=== PATIENT | male | born 1935 | race Caucasian/White ===

== ENCOUNTER → 2018-05-16 | Outpatient (CLI) | payer MEDICARE, OTHER ==
[~2018-05-16] MED LIST: AMLO5 PO; ASPI325 PO; Azor 10-20 MG1 EACH PO; LANS15EC PO; LISI20; LISI20 PO; METO50; METO50 PO; Multiple Vitam1 EAC1 PO; PROM25 PO; SIMV40 PO; Tasprin325 MG PO
== END | disposition home or self-care (01) ==
LOC: LAB SHORT 07:08 → PLD 07:08
DX: R59.0 Localized enlarged lymph nodes (principal)
CPT/HCPCS: 88173

== ENCOUNTER 2021-02-04 11:48 | Emergency (ER) | payer MEDICARE, OTHER ==
[~2021-02-04] VITALS: Ht 182.9 cm; Wt 103.4 kg
[2021-02-04 12:12] LABS: BASOPHILS ABSOLUTE AUTO 0.03 K/mm3 (0.00-0.23); BASOPHILS PERCENT AUTO 0 % (0-2); EOSINOPHILS ABSOLUTE AUTO 0.08 K/mm3 (0.00-0.68); EOSINOPHILS PERCENT AUTO 1 % (0-6); Hematocrit 45.6 % (37.0-53.0); Hemoglobin 15.5 g/dL (13.5-17.5); IMMATURE GRAN ABSOLUTE AUTO 0.03 K/mm3 (0.00-0.10); IMMATURE GRAN PERCENT AUTO 0 % (0-1); LYMPHOCYTES ABSOLUTE AUTO 4.53 K/mm3 (0.84-5.20); LYMPHOCYTES PERCENT AUTO 38 % (21-46); MONOCYTES ABSOLUTE AUTO 0.43 K/mm3 (0.16-1.47); MONOCYTES PERCENT AUTO 4 % (4-13); Mean Corpuscular HGB 29.9 pg (26.0-34.0); Mean Corpuscular Volume 88 fL (80-100); Mean Platelet Volume 10.4 fL (9.1-12.4); NEUTROPHILS PERCENT AUTO 57 % (41-73); NRBC ABSOLUTE 0.02 K/mm3 (0.00-0.02); NRBC Auto 0.2 /100 WBC (0.0-0.2); Platelet Count 150 K/mm3 (150-400); RDW Coefficient Variation 13.8 % (11.7-14.2); RDW Standard Deviation 44.6 fL (35.1-46.3); Red Blood Cell Count 5.18 M/mm3 (4.30-5.90)
[2021-02-04 12:32] LABS: Alanine Aminotransfer (ALT/SGP 20 U/L (12-78); Albumin, Blood 2.9 g/dL (3.4-5.0); Albumin/Globulin Ratio 0.9 (0.8-1.8); Alk Phos 115 U/L (50-136); Anion Gap 8 mmol/L (6-16); Aspartate Aminotrans (AST/SGOT 26 U/L (12-37); Bilirubin, Total 0.6 mg/dL (0.1-1.0); Blood Urea Nitrogen 16 mg/dL (8-24); Bun/Creatinine Ratio 15.7 (12.0-20.0); CO2, Blood 24 mmol/L (21-32); Calcium, Blood 8.4 mg/dL (8.5-10.1); Chloride, Blood 107 mmol/L (98-108); Creatinine, Blood 1.02 mg/dL (0.60-1.20); Globulin, Blood 3.2 g/dL (2.2-4.0); Glomerular Filtration Rate >60 (60-); Glucose, Blood 150 mg/dL (70-99); Potassium, Blood 4.6 mmol/L (3.5-5.5); Sodium, Blood 139 mmol/L (136-145); Total Protein, Blood 6.1 g/dL (6.4-8.2)
== END 2021-02-04 15:02 | disposition home or self-care (01) ==
LOC: ER 11:48
PROVIDERS: Emergency Medicine
DX: R55 Syncope and collapse (principal); E86.0 Dehydration; R42 Dizziness and giddiness; Z88.2 Allergy status to sulfonamides; Z79.899 Other long term (current) drug therapy; Z79.82 Long term (current) use of aspirin; I10 Essential (primary) hypertension; K21.9 Gastro-esophageal reflux disease without esophagitis
CPT/HCPCS: 80053; 83880; 84484; 85025; 93005; 93010; 99284-25

== ENCOUNTER 2021-12-27 10:49 | Day surgery (SDC) | payer MEDICARE, OTHER ==
[~2021-12-27] VITALS: Ht 185.4 cm; Wt 92.2 kg
[2021-12-27] MEDS ORDERED: TAMS.4ER (12:02)
== END 2021-12-27 13:33 | disposition home or self-care (01) ==
LOC: ORSCSDS 10:49
PROVIDERS: Internal Medicine Gastroenterology
PROC: 0DBM8ZX Excision of Descending Colon, Via Natural or Artificial Opening Endoscopic, Diagnostic (ICD-10-PCS; principal; 2021-12-27 12:15)
DX: Z12.11 Encounter for screening for malignant neoplasm of colon (principal); Z86.010 Personal history of colon polyps; D12.4 Benign neoplasm of descending colon; R12 Heartburn; K57.30 Diverticulosis of large intestine without perforation or abscess without bleeding; Z79.82 Long term (current) use of aspirin; Z79.899 Other long term (current) drug therapy
CPT/HCPCS: 88305; J2704; J7120

== ENCOUNTER 2022-08-12 12:00 | Inpatient (IN) | payer MEDICARE, OTHER ==
[~2022-08-12] VITALS: Ht 182.9 cm; Wt 101.2 kg
[~2022-08-12 12:00] MED LIST changes: -LEVAQUIN750 MG PO
--- NOTE | 2022-08-12 17:54 | NUR ---
Spiritual Care Request Pt. is awake in bed and welcomes my visit. Pt. is pleasant but isn't particularly interested in spiritual care. Listened with understanding and empathy. Yet the Pt. invited this payroll benefits administrator to sit and chat. Facilitated a life review with the Pt. and established rapport. Pt. displayed evidence of being cared for, and verbalized appreciatetion for my visit.
--- NOTE | 2022-08-12 18:32 | NUR ---
SHIFT SUMMARY PT A&OX4/[place](AIDS IN), VSS/RA, DEXTER PO CLD, VOIDING, AMB SBA, DENIES PAIN, 2OG RAC, IVF @ 100 MLS/HR AND ABX PER EMAR. WILL REPORT TO ONCOMING NOC YUNIEL.
[2022-08-12 19:35] VITALS: BP 117/49
[2022-08-12 21:30] VITALS: BP 120/55
[2022-08-13 03:15] VITALS: BP 110/52
[2022-08-13 04:22] LABS: BASOPHILS ABSOLUTE AUTO 0.04 K/mm3 (0.00-0.23); BASOPHILS PERCENT AUTO 0 % (0-2); EOSINOPHILS ABSOLUTE AUTO 0.19 K/mm3 (0.00-0.68); EOSINOPHILS PERCENT AUTO 1 % (0-6); Hematocrit 33.1 % (37.0-53.0); Hemoglobin 11.5 g/dL (13.5-17.5); Mean Corpuscular HGB 31.3 pg (26.0-34.0); Mean Corpuscular HGB Conc 34.7 g/dL (31.5-36.5); Mean Corpuscular Volume 90 fL (80-100); Mean Platelet Volume 9.4 fL (9.1-12.4); Platelet Count 195 K/mm3 (150-400); RDW Coefficient Variation 11.9 % (11.7-14.2); RDW Standard Deviation 39.3 fL (35.1-46.3); Red Blood Cell Count 3.67 M/mm3 (4.30-5.90); White Blood Cell Count 13.96 K/mm3 (4.00-11.30)
[2022-08-13 04:24] LABS: IMMATURE GRAN ABSOLUTE AUTO 0.03 K/mm3 (0.00-0.10); IMMATURE GRAN PERCENT AUTO 0 % (0-1); LYMPHOCYTES ABSOLUTE AUTO 7.75 K/mm3 (0.84-5.20); LYMPHOCYTES PERCENT AUTO 56 % (21-46); MONOCYTES ABSOLUTE AUTO 0.87 K/mm3 (0.16-1.47); MONOCYTES PERCENT AUTO 6 % (4-13); NEUTROPHILS ABSOLUTE AUTO 5.08 K/mm3 (1.96-9.15); NEUTROPHILS PERCENT AUTO 36 % (41-73)
[2022-08-13 04:45] LABS: Albumin, Blood 2.3 g/dL (3.4-5.0); Albumin/Globulin Ratio 0.8 (0.8-1.8); Bilirubin, Total 0.9 mg/dL (0.1-1.0); Calcium, Blood 7.9 mg/dL (8.5-10.1); Creatinine, Blood 1.2 mg/dL (0.60-1.20); Globulin, Blood 2.9 g/dL (2.2-4.0); Total Protein, Blood 5.2 g/dL (6.4-8.2)
--- NOTE | 2022-08-13 06:49 | NUR ---
SHIFT SUMMARY AOX4. VERY [place]. VSS. TOLERATING CLEAR LIQUIDS, DENIES N/V. ABD MILD DISTENDED. ABD TENDER TO PALPATION BELOW UMBILICAL, NO PAIN @REST. REPORTS LACK OF APPETITE. IND c URINAL. CALL LIGHT IN REACH WILL MONITOR.
[2022-08-13 07:41] VITALS: BP 122/51
[2022-08-13 15:21] VITALS: BP 113/51
--- NOTE | 2022-08-13 16:21 | NUR ---
SHIFT SUMMARY PT IND IN ROOM, AMBULATING WELL. REPORTS MULTIPLE BM'S TODAY WITH THE MOST RECENT BEING LIQUID. PASSING FLATUS. DENIES PAIN DURING SHIFT. TOLERATING FULL LIQUID DIET WELL.
[2022-08-13 19:31] VITALS: BP 125/60
[2022-08-14 04:11] VITALS: BP 138/61
--- NOTE | 2022-08-14 05:07 | NUR ---
SHIFT SUMMARY AOX4. VSS. DENIES N/V. TOLERATING FULL LIQUID DIET. ACTIVE BT. ABD MILD TENDER BELOW UMBILICAL, REPORTS 2/10 FOR DISCOMFORT. REPORTS NO PAIN OR DISCOMFORT @REST. PT STATES FEELS PAIN HAS "GOTTEN BETTER" SINCE PREVIOUS NIGHT. PASSING FLATUS. IND TO RESTROOM. CALL LIGHT IN REACH & PT ABLE TO MAKE NEEDS KNOWN.
[2022-08-14 07:51] VITALS: BP 137/71
[2022-08-14 14:36] VITALS: BP 134/56
--- NOTE | 2022-08-14 16:41 | NUR ---
shift summary pt remains ind in room, denies pain unless he palpates firmly on his abdomen. continues to pass gas. has had multiple bowel movements, some liquid and some soft. tolerating diet well. iv abx per emar. plan is for patient to have a repeat ct tomorrow.
[2022-08-14 19:55] VITALS: BP 145/61
[2022-08-15 03:15] VITALS: BP 153/69
[2022-08-15 03:55] LABS: BASOPHILS ABSOLUTE AUTO 0.04 K/mm3 (0.00-0.23); BASOPHILS PERCENT AUTO 0 % (0-2); EOSINOPHILS ABSOLUTE AUTO 0.17 K/mm3 (0.00-0.68); EOSINOPHILS PERCENT AUTO 2 % (0-6); Hemoglobin 11.6 g/dL (13.5-17.5); Mean Corpuscular HGB 30.9 pg (26.0-34.0); Mean Corpuscular HGB Conc 34.1 g/dL (31.5-36.5); Mean Corpuscular Volume 91 fL (80-100); Platelet Count 185 K/mm3 (150-400); RDW Coefficient Variation 11.9 % (11.7-14.2); RDW Standard Deviation 39.7 fL (35.1-46.3); Red Blood Cell Count 3.75 M/mm3 (4.30-5.90); White Blood Cell Count 10.87 K/mm3 (4.00-11.30)
[2022-08-15 04:04] LABS: IMMATURE GRAN ABSOLUTE AUTO 0.02 K/mm3 (0.00-0.10); IMMATURE GRAN PERCENT AUTO 0 % (0-1); LYMPHOCYTES ABSOLUTE AUTO 7.84 K/mm3 (0.84-5.20); LYMPHOCYTES PERCENT AUTO 72 % (21-46); MONOCYTES ABSOLUTE AUTO 0.45 K/mm3 (0.16-1.47); MONOCYTES PERCENT AUTO 4 % (4-13); NEUTROPHILS ABSOLUTE AUTO 2.35 K/mm3 (1.96-9.15); NEUTROPHILS PERCENT AUTO 22 % (41-73)
[2022-08-15 04:15] LABS: Albumin, Blood 2.5 g/dL (3.4-5.0); Albumin/Globulin Ratio 0.9 (0.8-1.8); Bilirubin, Total 0.5 mg/dL (0.1-1.0); Bun/Creatinine Ratio 6.2 (12.0-20.0); Calcium, Blood 7.9 mg/dL (8.5-10.1); Creatinine, Blood 0.97 mg/dL (0.60-1.20); Globulin, Blood 2.9 g/dL (2.2-4.0); Potassium, Blood 3.9 mmol/L (3.5-5.5); Total Protein, Blood 5.4 g/dL (6.4-8.2)
--- NOTE | 2022-08-15 04:25 | NUR ---
NEW CONFUSION *LATE ENTRY* ROUGHLY AROUND 0145 PT WALKING OUT IN [place] & YELLING "MOMMA." PT HAD BLOOD DRIPPING FROM R FOREARM. ESCORTED PT BACK TO RM. BLOOD DROPS T/O RM FLOOR & ALLOVER PT. PT ASKING "WHATS GOING ON AROUND HERE?" "HOW DID I GET HERE?" PT REPORTING HE WALKED ACROSS THE ROAD. STATES THOUGHT HE WAS AT HOME. REORIENTED PT & INFORMED HIM HE DID NOT LEAVE THE HOSPITAL YET. ABLE TO STATE DATE, NAME. FORGETFUL REASON IN HOSPITAL & NEEDING REMINDING. PT HAD TORN APART IV TUBING, HOWEVER IV STILL PATENT & WORKING PROPERLY. CALL LIGHT & BED ALARM IN PLACE.
--- NOTE | 2022-08-15 06:15 | NUR ---
SHIFT SUMMARY AOX4. VSS. DENIES N/V. ABD NONTENDER. DEXTER MECH SOFT DIET. REPORTS LOOSE BM. NEW ONSET FORGETFULNESS & CONFUSION AROUND 0145, READ PREVIOUS NOTE. MENTATION HAS CLEARED MORE NOW & PT REPORTS REMEMBERING FEELING CONFUSED. CHECKED CIWA THIS AM SINCE HX ETOH USE, GOT SCORE OF 4 FOR MILD HEADACHE & MILD TREMORS. PT TO CT EARLIER THIS AM AROUND 0600, AWAITING RESULTS. POSS DC POST RESULT. CALL LIGHT & BED ALARM ON FOR SAFETY. WILL MONITOR.
[2022-08-15 06:57] VITALS: BP 160/73
[2022-08-15] MEDS ORDERED: LEVAQUIN750 MG PO (14:47)
--- NOTE | 2022-08-15 15:30 | NUR ---
DISCHARGE SUMMARY PT A&OX4, VSS/RA, DEXTER PO, VOIDING/BRP, AMB INDEPENDENTLY/UP TO CHAIR, DENIES PAIN. DC INS PROVIDED. PT REP UNDERSTANDING THOSE INSTRUCTIONS INCLUDING FU WITH PCP AND TAKE ABX UNTIL FINISHED. LEFT FLOOR WITH AND RN, TO GO HOME WITH ALL PERSONAL POSSESSIONS INCLUDING DC PACKET.
== END 2022-08-15 15:32 | disposition home or self-care (01) | DRG 392 ==
LOC: ER 12:00 → SURS 12:56
PROVIDERS: ADMIT Internal Medicine
DX: K57.20 Diverticulitis of large intestine with perforation and abscess without bleeding (principal); C91.10 Chronic lymphocytic leukemia of B-cell type not having achieved remission; N28.9 Disorder of kidney and ureter, unspecified; I10 Essential (primary) hypertension; H91.90 Unspecified hearing loss, unspecified ear; E78.5 Hyperlipidemia, unspecified; K21.9 Gastro-esophageal reflux disease without esophagitis; E66.9 Obesity, unspecified; K59.00 Constipation, unspecified; Z88.2 Allergy status to sulfonamides; Z68.30 Body mass index [BMI] 30.0-30.9, adult; Z79.811 Long term (current) use of aromatase inhibitors; Z79.899 Other long term (current) drug therapy; Z79.2 Long term (current) use of antibiotics; Z95.5 Presence of coronary angioplasty implant and graft; Z92.21 Personal history of antineoplastic chemotherapy; Z87.19 Personal history of other diseases of the digestive system
CPT/HCPCS: 36415; 74177; 80053; 85025; 96365; 96366; 96372; 96375; 96376; 99284-25; A9270; G0378; J1644; J2543; J7030; Q9967

== ENCOUNTER → 2022-08-12 | Outpatient (CLI) | payer MEDICARE, OTHER ==
[~2022-08-12] MED LIST changes: +LEVAQUIN750 MG PO; +TAMS.4ER
[2022-08-12 10:05] LABS: Hematocrit 39.5 % (37.0-53.0); Mean Corpuscular HGB 31.5 pg (26.0-34.0); Mean Corpuscular HGB Conc 35.4 g/dL (31.5-36.5); Mean Corpuscular Volume 89 fL (80-100); Mean Platelet Volume 9.3 fL (9.1-12.4); Platelet Count 241 K/mm3 (150-400); RDW Standard Deviation 38.8 fL (35.1-46.3); Red Blood Cell Count 4.45 M/mm3 (4.30-5.90); White Blood Cell Count 21.17 K/mm3 (4.00-11.30)
[2022-08-12 10:24] LABS: Albumin/Globulin Ratio 0.9 (0.8-1.8); Bilirubin, Total 0.9 mg/dL (0.1-1.0); Bun/Creatinine Ratio 10.6 (12.0-20.0); Calcium, Blood 8.4 mg/dL (8.5-10.1); Creatinine, Blood 1.23 mg/dL (0.60-1.20); Globulin, Blood 3.4 g/dL (2.2-4.0); Potassium, Blood 4.6 mmol/L (3.5-5.5); Total Protein, Blood 6.4 g/dL (6.4-8.2)
[2022-08-12 10:45] LABS: BAND PERCENT MAN 3 % (0-8); BASOPHILS PERCENT MAN 0 % (0-2); EOSINOPHILS PERCENT MAN 0 % (0-6); LYMPHOCYTES ABSOLUTE MAN 8.25 K/mm3 (0.84-5.20); LYMPHOCYTES PERCENT MAN 39 % (21-46); MONOCYTES ABSOLUTE MAN 0.84 K/mm3 (0.16-1.47); MONOCYTES PERCENT MAN 4 % (4-13); NEUTROPHILS ABSOLUTE MAN 12.06 K/mm3 (1.96-9.15); SEG NEUTROPHILS PERCENT MAN 54 % (41-73); TOTAL CELLS COUNTED 100
== END ==
LOC: LAB 10:00 → LAB SHORT 10:00
PROVIDERS: Emergency Medicine
DX: R10.9 Unspecified abdominal pain (principal)
CPT/HCPCS: 80053; 83690; 85025

== ENCOUNTER 2023-01-17 09:32 | Day surgery (SDC) | payer MEDICARE, OTHER ==
[~2023-01-17] VITALS: Ht 185.4 cm; Wt 91.2 kg
[~2023-01-17 09:32] MED LIST changes: +LEVAQUIN750 MG PO
--- NOTE | 2023-01-17 10:11 | NUR ---
01/17/23 1011 Berenice Vega CALL LIGHT WITHIN REACH. TETRACAINE IN LEFT EYE AT 1007 AND [place] IN AT 1009
[2023-01-17 11:15] VITALS: BP 138/62
--- NOTE | 2023-01-17 11:51 | NUR ---
01/17/23 1151 HINA DONIS IV REMOVED. CANNULA INTACT. WNL. DEXTER WELL
== END 2023-01-17 11:38 | disposition home or self-care (01) ==
LOC: ORSCSDS 09:32
PROVIDERS: Student in an Organized Health Care Education/Training Program
PROC: 08RK3JZ Replacement of Left Lens with Synthetic Substitute, Percutaneous Approach (ICD-10-PCS; principal; 2023-01-17 11:00)
DX: H25.13 Age-related nuclear cataract, bilateral (principal); H21.81 Floppy iris syndrome; I10 Essential (primary) hypertension; I25.10 Atherosclerotic heart disease of native coronary artery without angina pectoris; Z79.82 Long term (current) use of aspirin; Z79.899 Other long term (current) drug therapy
CPT/HCPCS: J2250; J3010; J7040; V2632

== ENCOUNTER 2023-01-31 06:36 | Day surgery (SDC) | payer MEDICARE, OTHER ==
[~2023-01-31] VITALS: Ht 182.9 cm; Wt 91.5 kg
--- NOTE | 2023-01-31 06:59 | NUR ---
01/31/23 0659 Berenice Vega CALL LIGHT WITHIN REACH. TETRACAINE IN RIGHT EYE AT 0652 AND PLEDGETT IN AT 0654
[2023-01-31 08:23] VITALS: BP 128/59
--- NOTE | 2023-01-31 08:56 | NUR ---
01/31/23 0856 Ernie Fox iv removed inTACT. SITE WNL.
== END 2023-01-31 08:39 | disposition home or self-care (01) ==
LOC: ORSCSDS 06:36
PROVIDERS: Student in an Organized Health Care Education/Training Program
PROC: 08RJ3JZ Replacement of Right Lens with Synthetic Substitute, Percutaneous Approach (ICD-10-PCS; principal; 2023-01-31 08:00)
DX: H25.11 Age-related nuclear cataract, right eye (principal); Z96.1 Presence of intraocular lens; H21.81 Floppy iris syndrome; I25.10 Atherosclerotic heart disease of native coronary artery without angina pectoris; I10 Essential (primary) hypertension; Z79.82 Long term (current) use of aspirin; Z79.899 Other long term (current) drug therapy
CPT/HCPCS: J2001; J2250; J3010; J7040; V2632

== ENCOUNTER 2024-11-22 20:08 | Inpatient (IN) | payer MEDICARE, OTHER ==
[~2024-11-22] VITALS: Ht 182.9 cm; Wt 92.9 kg
[2024-11-22 21:00] LABS: Alanine Aminotransfer (ALT/SGP 15.0 U/L (12-78); Albumin, Blood 2.9 g/dL (3.4-5.0); Albumin/Globulin Ratio 1.1 (0.8-1.8); Anion Gap 8.0 mmol/L (3-11); Aspartate Aminotrans (AST/SGOT 18.0 U/L (12-37); BASOPHILS ABSOLUTE AUTO 0.05 K/mm3 (0.00-0.23); BASOPHILS PERCENT AUTO 0 % (0-2); Bilirubin, Total 1.3 mg/dL (0.1-1.0); Blood Urea Nitrogen 11.0 mg/dL (8-24); CO2, Blood 28.0 mmol/L (21-32); Calcium, Blood 8.2 mg/dL (8.5-10.1); Chloride, Blood 98.0 mmol/L (98-108); Creatinine, Blood 0.95 mg/dL (0.60-1.20); EOSINOPHILS ABSOLUTE AUTO 0.03 K/mm3 (0.00-0.68); EOSINOPHILS PERCENT AUTO 0 % (0-6); Globulin, Blood 2.6 g/dL (2.2-4.0); Glucose, Blood 181.0 mg/dL (70-99); Hematocrit 43.1 % (37.0-53.0); Hemoglobin 15.6 g/dL (13.5-17.5); IMMATURE GRAN ABSOLUTE AUTO 0.17 K/mm3 (0.00-0.10); IMMATURE GRAN PERCENT AUTO 1 % (0-1); LYMPHOCYTES ABSOLUTE AUTO 3.50 K/mm3 (0.84-5.20); LYMPHOCYTES PERCENT AUTO 18 % (21-46); MONOCYTES ABSOLUTE AUTO 0.54 K/mm3 (0.16-1.47); MONOCYTES PERCENT AUTO 3 % (4-13); Magnesium, Blood 1.3 mg/dL (1.6-2.4); Mean Corpuscular HGB Conc 36.2 g/dL (31.5-36.5); Mean Corpuscular Volume 89 fL (80-100); NEUTROPHILS ABSOLUTE AUTO 15.48 K/mm3 (1.96-9.15); NEUTROPHILS PERCENT AUTO 78 % (41-73); NRBC ABSOLUTE 0.02 K/mm3 (0.00-0.02); NRBC Auto 0.1 /100 WBC (0.0-0.2); Platelet Count 177 K/mm3 (150-400); Potassium, Blood 4.1 mmol/L (3.5-5.5); RDW Coefficient Variation 11.6 % (11.7-14.2); RDW Standard Deviation 37.5 fL (35.1-46.3); Sodium, Blood 130.0 mmol/L (136-145); Total Protein, Blood 5.5 g/dL (6.4-8.2)
[2024-11-22] MEDS ORDERED: Diazepam 5 MG / ML 2ML SYR IV ONE (22:30)
[2024-11-22] MEDS ORDERED: BRUKINSA80 MG PO (22:41)
[2024-11-23] MEDS ORDERED: Ondansetron HCl 2 MG / ML 2ML Vial IV PRN (00:40)
[2024-11-23] MEDS ORDERED: Morphine Sulfate 4 MG/1 ML Injection IV PRN (00:45)
[2024-11-23] MEDS ORDERED: NS 1,000 ML IV SCH ×2 (01:00→20:15)
[2024-11-23 02:10] VITALS: BP 138/69
--- NOTE | 2024-11-23 02:32 | NUR ---
CALL FROM LAB; LACTIC ACID VALUE OF 2.1. ATTEMPTED TO CONTACT PROVIDER; AWAITING CALL BACK.
[2024-11-23 02:36] LABS: Source, Urine Clean Catch
[2024-11-23 02:48] LABS: Bilirubin, Urine Neg (Neg); Glucose Qualitative, Urine Neg (Neg); Ketones, Urine 2+ (Neg); Leukocyte Esterase, Urine 1+ (Neg); Protein, Urine 2+ (Neg); Specific Gravity, Urine 1.010 (1.003-1.022); Urobilinogen, Urine NORM (Normal)
[2024-11-23 02:51] LABS: Color, Urine Yellow (P-Yellow)
[2024-11-23 02:52] LABS: Red Blood Cells, Urine 0-2 /hpf (0-2); White Blood Cells, Urine 0-2 /hpf (0-5)
[2024-11-23 04:44] LABS: BASOPHILS ABSOLUTE AUTO 0.04 K/mm3 (0.00-0.23); BASOPHILS PERCENT AUTO 0 % (0-2); EOSINOPHILS ABSOLUTE AUTO 0.00 K/mm3 (0.00-0.68); EOSINOPHILS PERCENT AUTO 0 % (0-6); Hematocrit 42.7 % (37.0-53.0); Hemoglobin 15.2 g/dL (13.5-17.5); IMMATURE GRAN ABSOLUTE AUTO 0.05 K/mm3 (0.00-0.10); IMMATURE GRAN PERCENT AUTO 0 % (0-1); LYMPHOCYTES ABSOLUTE AUTO 2.04 K/mm3 (0.84-5.20); LYMPHOCYTES PERCENT AUTO 13 % (21-46); MONOCYTES ABSOLUTE AUTO 0.32 K/mm3 (0.16-1.47); MONOCYTES PERCENT AUTO 2 % (4-13); Mean Corpuscular HGB Conc 35.6 g/dL (31.5-36.5); Mean Corpuscular Volume 89 fL (80-100); NEUTROPHILS ABSOLUTE AUTO 13.09 K/mm3 (1.96-9.15); NEUTROPHILS PERCENT AUTO 84 % (41-73); NRBC ABSOLUTE 0.00 K/mm3 (0.00-0.02); NRBC Auto 0.0 /100 WBC (0.0-0.2); Platelet Count 157 K/mm3 (150-400); RDW Coefficient Variation 11.6 % (11.7-14.2); RDW Standard Deviation 37.5 fL (35.1-46.3)
[2024-11-23 05:13] LABS: Anion Gap 8.0 mmol/L (3-11); Blood Urea Nitrogen 13.0 mg/dL (8-24); CO2, Blood 28.0 mmol/L (21-32); Calcium, Blood 7.6 mg/dL (8.5-10.1); Chloride, Blood 98.0 mmol/L (98-108); Creatinine, Blood 0.98 mg/dL (0.60-1.20); Glucose, Blood 145.0 mg/dL (70-99); Magnesium, Blood 1.3 mg/dL (1.6-2.4); Potassium, Blood 4.6 mmol/L (3.5-5.5); Sodium, Blood 129.0 mmol/L (136-145)
--- NOTE | 2024-11-23 05:38 | NUR ---
SHIFT SUMMARY NO ACUTE EVENTS DURING SHIFT. PT UNABLE TO RECONCILE MEDICATION PER REPORT, HIS HAS HIS LIST OF MEDICATIONS. PT PLACED IN ISOLATION WHILE AWAITING NASAL SWAB RESULTS. PT ON ROOM AIR AND REPORTS NO PAIN. PT NPO SINCE ARRIVAL.
--- NOTE | 2024-11-23 06:12 | NUR ---
XR AT BEDSIDE
[2024-11-23 07:06] LABS: Influenza A/2009-H1 Not Detected (NOT DETECT); SARS-Cov-2 (COVID-19), BioFire Not Detected (NOT DETECT)
[2024-11-23 08:10] VITALS: BP 127/51
[2024-11-23] MEDS ORDERED: Magnesium Sulf 2 GM/Water 50ML 50 ML IV ONE (08:55)
[2024-11-23 14:53] VITALS: BP 169/67
--- NOTE | 2024-11-23 17:53 | NUR ---
SHIFT SUMMARY PT RESTING. NPO FOR SBO. IV INFUSING L AC. PT DENIES COMPLAINTS. WILL CONTINUE TO MONITOR.
[2024-11-23 20:04] VITALS: BP 166/59
[2024-11-23] MEDS ORDERED: LORazepam 2 MG/ML 1ML Injection IV PRN (21:45)
[2024-11-23] MEDS ORDERED: HydrALAZINE HCl 20 MG / ML 1ML Vial IV PRN (21:45)
[2024-11-24 04:25] VITALS: BP 167/72
--- NOTE | 2024-11-24 04:35 | NUR ---
PT CALLED RN TO ROOM; PT C/O SOB AFTER GETTING UP TO RESTROOM. PT DECLINES NURSE TO CALL PROVIDER FOR BREATHING TREATMENT AT THIS TIME. PT LUNG SOUNDS REMAIN UNCHANGED FROM PREVIOUS ASSESSMENT. PT SPO2 98%.
[2024-11-24 04:36] LABS: BASOPHILS ABSOLUTE AUTO 0.04 K/mm3 (0.00-0.23); BASOPHILS PERCENT AUTO 0 % (0-2); EOSINOPHILS ABSOLUTE AUTO 0.05 K/mm3 (0.00-0.68); EOSINOPHILS PERCENT AUTO 0 % (0-6); Hematocrit 41.9 % (37.0-53.0); Hemoglobin 14.7 g/dL (13.5-17.5); IMMATURE GRAN ABSOLUTE AUTO 0.06 K/mm3 (0.00-0.10); IMMATURE GRAN PERCENT AUTO 0 % (0-1); LYMPHOCYTES ABSOLUTE AUTO 2.97 K/mm3 (0.84-5.20); LYMPHOCYTES PERCENT AUTO 21 % (21-46); MONOCYTES ABSOLUTE AUTO 0.32 K/mm3 (0.16-1.47); MONOCYTES PERCENT AUTO 2 % (4-13); Mean Corpuscular HGB Conc 35.1 g/dL (31.5-36.5); Mean Corpuscular Volume 92 fL (80-100); NEUTROPHILS ABSOLUTE AUTO 10.69 K/mm3 (1.96-9.15); NEUTROPHILS PERCENT AUTO 76 % (41-73); NRBC ABSOLUTE 0.00 K/mm3 (0.00-0.02); NRBC Auto 0.0 /100 WBC (0.0-0.2); Platelet Count 161 K/mm3 (150-400); RDW Coefficient Variation 11.9 % (11.7-14.2); RDW Standard Deviation 39.9 fL (35.1-46.3)
[2024-11-24 05:14] LABS: Alanine Aminotransfer (ALT/SGP 12.0 U/L (12-78); Albumin, Blood 2.7 g/dL (3.4-5.0); Albumin/Globulin Ratio 0.9 (0.8-1.8); Anion Gap 9.0 mmol/L (3-11); Aspartate Aminotrans (AST/SGOT 22.0 U/L (12-37); Bilirubin, Total 2.1 mg/dL (0.1-1.0); Blood Urea Nitrogen 13.0 mg/dL (8-24); CO2, Blood 25.0 mmol/L (21-32); Calcium, Blood 8.0 mg/dL (8.5-10.1); Chloride, Blood 102.0 mmol/L (98-108); Creatinine, Blood 0.86 mg/dL (0.60-1.20); Globulin, Blood 3.0 g/dL (2.2-4.0); Glucose, Blood 108.0 mg/dL (70-99); Potassium, Blood 3.9 mmol/L (3.5-5.5); Sodium, Blood 132.0 mmol/L (136-145); Total Protein, Blood 5.7 g/dL (6.4-8.2)
--- NOTE | 2024-11-24 06:32 | NUR ---
SHIFT SUMMARY SEE ADDITIONAL NOTES DURING SHIFT FOR SOB EPISODE. PROVIDER PLACED ORDERS DURING NOC SHIFT FOR CIWA ASSESSMENT; PER PT HE HAS NOT HAD ALCOHOL FOR OVER 2 WEEKS. PT DID HAVE BOWEL MOVEMENT THIS MORNING. PT DECLINED PAIN/NAUSEA MEDICATION DURING NOC SHIFT.
[2024-11-24 07:18] VITALS: BP 159/60
[2024-11-24] MEDS ORDERED: Heparin Sodium,Porcine 5,000 UNIT/0.5 ML SDV SC SCH (08:00)
[2024-11-24 14:47] VITALS: BP 149/62
--- NOTE | 2024-11-24 17:58 | NUR ---
SHIFT SUMMARY. PT ADVANCED TO CLEAR LIQUIDS BY MD TODAY. TOLERATING WELL. DENIES COMPLAINTS. WILL CONTINUE TO MONITOR
[2024-11-24 20:21] VITALS: BP 160/79
--- NOTE | 2024-11-25 03:06 | NUR ---
LAB NOTIFICATION/CALL TO HOSPITALIST. THIS RN NOTIFIED OF POSITIVE BLOOD CULTURES FROM BENJY IN THE LAB AT 0242. PT HAS GRAM POSITIVE COCCI IN CLUSTERS. CALL PLACED TO HOSPITALIST REGARDING ABOVE AT 0300. NO NEW ORDERS RECEIVED.
--- NOTE | 2024-11-25 04:19 | NUR ---
SHIFT SUMMARY NOC. PT ADMIT FOR NON SURGICAL SBO. PT A/O X4 AND HABEMATOLEL. PT NOW REPORTS PASSING GAS AFTER 2 BMS THIS SHIFT, PT ALSO VOIDING URINE. PT DENIES N/V THIS SHIFT AND ABDOMINAL PAIN. CIWA SCORE NEGATIVE FOR SX, WITH SCORE OF 0. PT MAKES NEEDS KNOWN, CALL LIGHT IN REACH.
[2024-11-25 05:25] VITALS: BP 157/64
[2024-11-25 05:25] LABS: BASOPHILS ABSOLUTE AUTO 0.01 K/mm3 (0.00-0.23); BASOPHILS PERCENT AUTO 0 % (0-2); EOSINOPHILS ABSOLUTE AUTO 0.10 K/mm3 (0.00-0.68); EOSINOPHILS PERCENT AUTO 2 % (0-6); Hematocrit 35.1 % (37.0-53.0); Hemoglobin 12.1 g/dL (13.5-17.5); IMMATURE GRAN ABSOLUTE AUTO 0.03 K/mm3 (0.00-0.10); IMMATURE GRAN PERCENT AUTO 1 % (0-1); LYMPHOCYTES ABSOLUTE AUTO 1.18 K/mm3 (0.84-5.20); LYMPHOCYTES PERCENT AUTO 18 % (21-46); MONOCYTES ABSOLUTE AUTO 0.26 K/mm3 (0.16-1.47); MONOCYTES PERCENT AUTO 4 % (4-13); Mean Corpuscular HGB Conc 34.5 g/dL (31.5-36.5); Mean Corpuscular Volume 93 fL (80-100); NEUTROPHILS ABSOLUTE AUTO 4.89 K/mm3 (1.96-9.15); NEUTROPHILS PERCENT AUTO 76 % (41-73); NRBC ABSOLUTE 0.00 K/mm3 (0.00-0.02); NRBC Auto 0.0 /100 WBC (0.0-0.2); Platelet Count 129 K/mm3 (150-400); RDW Coefficient Variation 11.7 % (11.7-14.2); RDW Standard Deviation 39.8 fL (35.1-46.3)
[2024-11-25 05:48] LABS: Anion Gap 9.0 mmol/L (3-11); Blood Urea Nitrogen 8.0 mg/dL (8-24); CO2, Blood 24.0 mmol/L (21-32); Calcium, Blood 7.3 mg/dL (8.5-10.1); Chloride, Blood 103.0 mmol/L (98-108); Creatinine, Blood 0.69 mg/dL (0.60-1.20); Glucose, Blood 114.0 mg/dL (70-99); Potassium, Blood 3.6 mmol/L (3.5-5.5); Sodium, Blood 132.0 mmol/L (136-145)
[2024-11-25 07:14] VITALS: BP 143/64
--- NOTE | 2024-11-25 13:52 | NUR ---
ASSUMED CARE OF PT @0700 AXO4 - [place]. VSS. ON RA. TOLERATING CL DIET THIS AM WELL - HAD 1 MEDIUM SOFT/SOLID BM. VOIDING WELL. ABD SLIGHTLY TENDER TO HARD PALPATION BUT WITHOUT PRESSING, PT DENYING PAIN. PT UP AND OOB WITH SBA, TOLERATED WLL. SURGEON ASSESSED PT - DEEMED OK TO DC. HOSPITALIST GARY FOLLOWED SUIT BUT CHECKED WITH MICROBIOLOGY TO MAKE SURE BC POSITIVE LAST NOC WAS CONTAMINANT - MICRO STATE PROBABLE CONTAMINATE RESULT BUT UNABLE TO CONFIRM ORGANISM. DR ALSO ALERTED THAT PT TOELRATED MINCED AND MOIST DIET FOR LUNCH WELL. DC ORDERS RECEIVED. AWAITING 'S ARRIVAL TO COMPLETE DC PROCESS.
--- NOTE | 2024-11-25 14:38 | NUR ---
DC INSTRUCTIONS PROVIDED TO PT @ @0187. EXPRESSED UNDERSTANDING OF INSTRUCTIONS. PT WITH BELONGINGS. GETTING DRESSED NOW. IV PULLED. PT LOADING INTO WHEELCHAIR TO BE TAKEN HOME WITH .
[2024-11-25 14:40] VITALS: BP 142/84
== END 2024-11-25 14:54 | disposition home or self-care (01) | DRG 389 ==
LOC: ER 20:08 → SURS 11-23 00:38
PROVIDERS: Family Medicine; Internal Medicine; Student in an Organized Health Care Education/Training Program; ADMIT Internal Medicine
DX: K56.609 Unspecified intestinal obstruction, unspecified as to partial versus complete obstruction (principal); C91.10 Chronic lymphocytic leukemia of B-cell type not having achieved remission; E87.1 Hypo-osmolality and hyponatremia; K52.1 Toxic gastroenteritis and colitis; I10 Essential (primary) hypertension; F10.90 Alcohol use, unspecified, uncomplicated; I25.10 Atherosclerotic heart disease of native coronary artery without angina pectoris; E78.5 Hyperlipidemia, unspecified; E83.42 Hypomagnesemia; T45.1X5A Adverse effect of antineoplastic and immunosuppressive drugs, initial encounter; Z88.2 Allergy status to sulfonamides; Z95.5 Presence of coronary angioplasty implant and graft; Z85.828 Personal history of other malignant neoplasm of skin
CPT/HCPCS: 0202U; 36415; 71045; 74177; 80048; 80053; 81001; 83605; 83690; 83735; 83880; 85025; 87040; 87077; 87086; 96361; 96374; 99285-25; A9270; J1644; J3360; J3411; J3475; J7030; J7120; Q9967